=== PATIENT | female | born 1965 | race Caucasian/White ===

== ENCOUNTER 2024-08-16 12:45 | Emergency (ER) | payer BC, OTHER ==
[~2024-08-16] VITALS: Ht 167.6 cm; Wt 127.1 kg
[~2024-08-16 12:45] MED LIST: CELEXA10 MG; HYDROCHLOROTHIA25 MG PO; LEXAPRO10 MG PO; PRILOSEC20 MG PEG; XANAX0.5 MG PEG
[2024-08-16 12:50] VITALS: PULSE 66; RESP 20; TEMP 96.5
[2024-08-16] MEDS ORDERED: OZEMPIC1 MG/0.71 (13:16)
[2024-08-16] MEDS ORDERED: NEURONTIN300 MG PO (13:16)
[2024-08-16] MEDS ORDERED: ATORVASTATIN CA20 MG PO (13:16)
[2024-08-16] MEDS: ONDANSETRON HCL INJ 2MG/ML 2ML 2 MG/ML VIAL IV STA (13:23)
[2024-08-16] MEDS: FAMOTIDINE 20 MG/2 ML VIAL IV STA (13:23)
[2024-08-16] MEDS: SODIUM CHLORIDE 0.9% 1000ML 1,000 ML IV ONE (13:23)
[2024-08-16] MEDS ORDERED: IOPAMIDOL 370 MG/ML 100 ML INFUS..BTL INJ ONE (14:13)
[2024-08-16] MEDS ORDERED: SODIUM CHLORIDE 0.9% 500ML 500 ML ONE (14:30)
[2024-08-16] MEDS: POTASSIUM CHLORIDE 10MEQ/100ML 100 ML IV ONE (15:38)
[2024-08-16] MEDS ORDERED: ONDANSETRON ODT4 MG PO (17:03)
[2024-08-16] MEDS ORDERED: METRONIDAZOLE500 MG PO (17:04)
[2024-08-16] MEDS ORDERED: PEPCID20 MG PO (17:04)
[2024-08-16 17:13] VITALS: BP 112/63; PULSE 63; RESP 20; TEMP 97.6; O2SAT 99
== END 2024-08-16 17:14 | disposition home or self-care (01) ==
LOC: FSED 12:49
DX: R11.2 Nausea with vomiting, unspecified (principal); E86.0 Dehydration; R19.7 Diarrhea, unspecified; E87.6 Hypokalemia; Z87.19 Personal history of other diseases of the digestive system; Z98.84 Bariatric surgery status
CPT/HCPCS: 74177; 80053; 80307; 81003; 85025; 99283; J2405; J2543; J3480; J7030; J7040; Q9967

== ENCOUNTER 2025-03-31 22:10 | Emergency (ER) | payer OTHER ==
[~2025-03-31] VITALS: Ht 167.6 cm; Wt 119.7 kg
[~2025-03-31 22:10] MED LIST changes: +ATORVASTATIN CA20 MG PO; +METRONIDAZOLE500 MG PO; +NEURONTIN300 MG PO; +ONDANSETRON ODT4 MG PO; +OZEMPIC1 MG/0.71; +PEPCID20 MG PO
[2025-04-01] MEDS: LACTATED RINGER'S 1,000 ML INJ ONE (02:10)
[2025-04-01] MEDS: FAMOTIDINE 20 MG/2 ML VIAL IV STA ×2 (02:13→02:45)
[2025-04-01] MEDS: ONDANSETRON HCL INJ 2MG/ML 2ML 2 MG/ML VIAL IV STA ×2 (02:13→02:45)
[2025-04-01] MEDS: KETOROLAC TROMETHAMINE 30 MG/ML VIAL IV STA (02:48)
[2025-04-01] MEDS: LOPERAMIDE HCL 2 MG CAP PO ONE (03:00)
[2025-04-01] MEDS ORDERED: ONDANSETRON ODT4 MG PO (04:05)
[2025-04-01 04:19] VITALS: PULSE 79; RESP 18; TEMP 98.7; O2SAT 99
[2025-04-01 04:21] VITALS: BP 137/63; PULSE 79; RESP 18; TEMP 98.7
== END 2025-04-01 04:24 | disposition home or self-care (01) ==
LOC: FSED 22:16
DX: E86.0 Dehydration (principal); R11.0 Nausea; E11.9 Type 2 diabetes mellitus without complications; Z79.85 Long-term (current) use of injectable non-insulin antidiabetic drugs; E78.5 Hyperlipidemia, unspecified; Z98.84 Bariatric surgery status
CPT/HCPCS: 80053; 81003; 84484; 85025; 99284; J1308; J1885; J2405; J7121